=== PATIENT | female | born 1970 | race Caucasian/White ===

== ENCOUNTER → 2021-05-17 | Day surgery (SDC) | payer OTHER ==
[~2021-05-17] VITALS: Ht 165.1 cm; Wt 77.1 kg
[~2021-05-17] MED LIST: ALDACTONE50 MG PO; COREG 6.25MG6.25 MG PO; FLUOXETINE HCL10 MG PO; FLUOXETINE HCL20 MG PO; LASIX80 MG PO; MIRENA1 EACH IY; NITROQUIK SL0.4 MG SL; PRILOSEC20 MG PO; PROAIR DIGIHAL90 MCG INH; UROCIT-K10 MEQ PO; ZESTRIL5 MG PO
[2021-05-17 09:11] LABS: HCG (URINE) SCREEN NEGATIVE (NEGATIVE)
[2021-05-17 09:32] LABS: HCT 43.8 % (37.0-47.0); HGB 14.7 g/dl (12.5-16.0); MCH 29.8 pg (25.0-31.0); MCHC 33.6 g/dL (32.0-36.0); MCV 88.7 fL (78.0-100.0); MPV 11.5 fL (6.0-9.5); RBC 4.94 M/uL (4.20-5.40); RDW 12.9 % (11.5-14.0); WBC 7.3 K/uL (4.0-10.5)
[2021-05-17 09:46] LABS: BILIRUBIN - TOTAL 0.5 mg/dL (0.2-1.0); BUN/CREAT RATIO (CALC) 18.9 RATIO; CREATININE 0.74 mg/dL (0.51-0.95); GLOBULIN (CALCULATION) 3.2 g/dL; POTASSIUM 4.4 mmol/L (3.5-5.1); TOTAL PROTEIN 7.2 g/dL (6.4-8.2)
== END | disposition home or self-care (01) ==
LOC: FAS 08:30
PROVIDERS: Surgery
DX: Z12.11 Encounter for screening for malignant neoplasm of colon (principal); I50.9 Heart failure, unspecified; Z95.810 Presence of automatic (implantable) cardiac defibrillator; Z88.5 Allergy status to narcotic agent; Z88.2 Allergy status to sulfonamides
CPT/HCPCS: 36415; 80053; 84703; 93005; J2250; J2704; J7120

== ENCOUNTER 2021-05-23 09:27 | Emergency (ER) | payer OTHER ==
[2021-05-23] MEDS ORDERED: UROCIT-K10 MEQ PO (09:45)
[2021-05-23] MEDS ORDERED: NORCO 5-325 TA1 EACH PO (11:21)
== END 2021-05-23 11:30 | disposition home or self-care (01) ==
LOC: FER 09:27
DX: S83.241A Other tear of medial meniscus, current injury, right knee, initial encounter (principal); I10 Essential (primary) hypertension; E11.9 Type 2 diabetes mellitus without complications; Z88.5 Allergy status to narcotic agent; X58.XXXA Exposure to other specified factors, initial encounter
CPT/HCPCS: 73564

== ENCOUNTER → 2021-06-09 | Day surgery (SDC) | payer OTHER ==
[~2021-06-09] VITALS: Ht 165.1 cm; Wt 77.1 kg
[~2021-06-09] MED LIST changes: +NORCO 5-325 TA1 EACH PO
[2021-06-09 06:06] LABS: HCG (URINE) SCREEN NEGATIVE (NEGATIVE)
[2021-06-09 06:35] LABS: HCT 40.7 % (37.0-47.0); HGB 13.9 g/dl (12.5-16.0); MCH 30.2 pg (25.0-31.0); MCHC 34.2 g/dL (32.0-36.0); MCV 88.3 fL (78.0-100.0); MPV 11.3 fL (6.0-9.5); RBC 4.61 M/uL (4.20-5.40); RDW 13.1 % (11.5-14.0); WBC 8.7 K/uL (4.0-10.5)
[2021-06-09 06:51] LABS: ALBUMIN 3.4 g/dL (3.4-5.0); BILIRUBIN - TOTAL 0.2 mg/dL (0.2-1.0); BUN/CREAT RATIO (CALC) 17.1 RATIO; CREATININE 0.7 mg/dL (0.51-0.95); GLOBULIN (CALCULATION) 3.1 g/dL; POTASSIUM 3.4 mmol/L (3.5-5.1); TOTAL PROTEIN 6.5 g/dL (6.4-8.2)
== END | disposition home or self-care (01) ==
LOC: FAS 05:45
PROVIDERS: Orthopaedic Surgery
DX: S83.241A Other tear of medial meniscus, current injury, right knee, initial encounter (principal); S83.511A Sprain of anterior cruciate ligament of right knee, initial encounter; M25.861 Other specified joint disorders, right knee; M17.11 Unilateral primary osteoarthritis, right knee; X58.XXXA Exposure to other specified factors, initial encounter; I42.9 Cardiomyopathy, unspecified; K21.9 Gastro-esophageal reflux disease without esophagitis; I50.9 Heart failure, unspecified; F41.9 Anxiety disorder, unspecified; Z95.0 Presence of cardiac pacemaker; Z88.2 Allergy status to sulfonamides; Z88.5 Allergy status to narcotic agent; Z88.8 Allergy status to other drugs, medicaments and biological substances; Z79.899 Other long term (current) drug therapy
CPT/HCPCS: 36415; 80053; 84703; J1170; J2250; J2704; J3010; J7120

== ENCOUNTER → 2021-11-02 | Day surgery (SDC) | payer OTHER ==
[~2021-11-02] VITALS: Ht 165 cm; Wt 77.0 kg
[2021-11-02 09:07] LABS: HCG (URINE) SCREEN NEGATIVE (NEGATIVE)
[2021-11-02 09:43] LABS: BUN/CREAT RATIO (CALC) 24.3 RATIO; CREATININE 0.7 mg/dL (0.51-0.95); POTASSIUM 4.4 mmol/L (3.5-5.1)
== END | disposition home or self-care (01) ==
LOC: FAS 08:17
PROVIDERS: Anesthesiology
DX: S83.511A Sprain of anterior cruciate ligament of right knee, initial encounter (principal); X58.XXXA Exposure to other specified factors, initial encounter; Z79.899 Other long term (current) drug therapy; Z88.2 Allergy status to sulfonamides; Z88.5 Allergy status to narcotic agent
CPT/HCPCS: 36415; 80048; 84703; C1713; C1762; J0690; J1100; J1170; J1885; J2250; J2405; J2704; J2795; J3010; J7120